=== PATIENT | male | born 1975 | race Caucasian/White ===

== ENCOUNTER 2019-02-08 15:40 | Emergency (ER) | payer SELFPAY ==
--- NOTE | 2019-02-08 15:47 | NUR ---
PT LEFT ER WITHOUT BEING SEEN BY , PT HERE FOR CASTING, EXPLAINED THAT WE DO NOT DO CASTING IN ER. PT STATES HE'D RATHER NOT BE SEEN AND WILL GO TO PRIMARY TO GET AN ORTHOPEDIST.
== END 2019-02-08 15:47 | disposition left against medical advice (07) ==
LOC: SED 15:40
DX: S49.90XA Unspecified injury of shoulder and upper arm, unspecified arm, initial encounter (principal); Z53.21 Procedure and treatment not carried out due to patient leaving prior to being seen by health care provider; X58.XXXA Exposure to other specified factors, initial encounter; Y93.89 Activity, other specified; Y92.89 Other specified places as the place of occurrence of the external cause; Y99.8 Other external cause status